=== PATIENT | male | born 1950 | race Two or more races ===

== ENCOUNTER 2024-04-05 15:13 | Outpatient (CLI) | payer OTHER ==
[2024-04-05 16:26] LABS: CREATININE SERUM 1.29 mg/dL (0.70-1.30)
== END 2024-04-05 15:21 | disposition home or self-care (01) ==
LOC: LAB 15:13
DX: D41.3 Neoplasm of uncertain behavior of urethra (principal)

== ENCOUNTER 2024-04-07 10:34 | Outpatient (CLI) | payer OTHER | END 2024-04-07 10:45 | disposition home or self-care (01) | LOC: MRI 10:34 | DX: R41.3 Other amnesia (principal) | CPT/HCPCS: 70553; Q9965 ==

== ENCOUNTER 2025-04-25 11:48 | Outpatient (CLI) | payer OTHER | END 2025-04-25 11:59 | disposition home or self-care (01) | LOC: RAD 11:48 | PROVIDERS: ATTEND Internal Medicine Cardiovascular Disease | DX: M12.9 Arthropathy, unspecified (principal) ==